=== PATIENT | female | born 1975 | race Asian ===

== ENCOUNTER 2019-09-07 22:06 | Emergency (ER) | payer MEDICAID ==
[~2019-09-07] VITALS: Ht 152.4 cm; Wt 56.8 kg
--- NOTE | 2019-09-07 22:18 | NUR ---
SHE CALLED HER SON AND HAD ME SPEAK TO HIM AND HE WAS ABLE TO TELL ME ABOUT THE THINGS THAT I SPOKE IN THE TRIAGE NOTE. THERE IS A LANGUAGE BARRIER. PT IS RESTING NOW.
[2019-09-07 23:16] LABS: HEMOGLOBIN 14.3 g/dl (12.0-16.0)
[2019-09-07 23:17] LABS: BASOPHILS # (AUTO) 0.1 X10'3 (0-0.2); BASOPHILS % (AUTO) 0.6 % (0-1); EOSINOPHILS # (AUTO) 0.1 X10'3 (0-0.9); HEMATOCRIT 41.5 % (35.0-45.0); LYMPHOCYTES # (AUTO) 1.9 X10'3 (1.1-4.8); LYMPHOCYTES % (AUTO) 20.5 % (21-51); MEAN CORPUSCULAR HEMOGLOBIN 30.7 PG (27.0-31.0); MEAN CORPUSCULAR HGB CONC 34.4 g/dL (33.0-36.5); MEAN CORPUSCULAR VOLUME 89.4 FL (78-98); MEAN PLATELET VOLUME 10.5 FL (7.4-10.4); MONOCYTES # (AUTO) 0.7 X10'3 (0-0.9); MONOCYTES % (AUTO) 7.1 % (2-12); NEUTROPHILS # (AUTO) 6.7 X10'3 (1.8-7.7); NEUTROPHILS % (AUTO) 70.8 % (42-75); PLATELET COUNT 154 X10'3 (140-440); RED BLOOD COUNT 4.64 X10'6 (4.20-5.60); RED CELL DISTRIBUTION WIDTH 13.2 % (11.5-14.5); WHITE BLOOD COUNT 9.4 X10'3 (4.5-11.0)
[2019-09-07 23:24] LABS: ALANINE AMINOTRANSFERASE 37 U/L (12-78); ALBUMIN 3.1 G/DL (3.4-5.0); ALBUMIN/GLOBULIN RATIO 0.8 (1.1-1.5); ALKALINE PHOSPHATASE 69 IU/L (46-116); ANION GAP 9 (8-16); ASPARTATE AMINO TRANSFERASE 22 U/L (10-37); BILIRUBIN,TOTAL 0.3 MG/DL (0.1-1.0); BLOOD UREA NITROGEN 14 MG/DL (7-18); BUN/CREATININE RATIO 20.9 (6.6-38.0); CALCIUM 7.9 MG/DL (8.5-10.1); CHLORIDE 106 MMOL/L (99-107); CREATININE 0.67 MG/DL (0.40-0.90); GLUCOSE 108 MG/DL (70-104); SODIUM 140 MMOL/L (135-145); TOTAL CARBON DIOXIDE 24.6 MMOL/L (24-32); TOTAL PROTEIN 6.8 G/DL (6.4-8.2); eGFR > 90 ML/MIN
[2019-09-07] MEDS ORDERED: normal saline 1000ML IV soln IVB ONE (23:25)
[2019-09-07 23:34] LABS: TROPONIN I < 0.04 NG/ML (0.0-0.05)
[2019-09-07 23:38] LABS: ETHANOL < 0.010 GM/DL (0.0-0.010)
[2019-09-08] MEDS ORDERED: normal saline 1000ML IV soln IVB ONE (01:05)
--- NOTE | 2019-09-08 01:16 | NUR ---
I AWOKE THE PATIENT AND AM HAVING HER VOID
[2019-09-08 01:31] LABS: URINE HCG NEGATIVE (NEG)
--- NOTE | 2019-09-08 01:38 | NUR ---
PT UNDRESSED IN FRONT ON ME. NO SKIN ISSUES. NO CONTRABAND. PT IS MEDICALLY CLEARED. SHE IS BEING TRANSFERRED TO [facility] TO [place].
[2019-09-08 01:44] LABS: URINE AMPHETAMINE SCREEN NEGATIVE (Neg); URINE BARBITUATE SCREEN NEGATIVE (Neg); URINE BENZODIAZEPINES SCREEN POSITIVE (Neg); URINE CANNABINOID SCREEN NEGATIVE (Neg); URINE COCAINE SCREEN NEGATIVE (Neg); URINE METHADONE SCREEN NEGATIVE (Neg); URINE OPIATE SCREEN NEGATIVE (Neg); URINE PHENCYCLIDINE SCREEN NEGATIVE (Neg)
--- NOTE | 2019-09-08 01:44 | NUR ---
Pt resting comfortably, respirations normal, no s/s of distress.
[2019-09-08 01:47] LABS: CLARITY,URINE CLEAR (Clear); COLOR,URINE YELLOW (Yellow); GLUCOSE, URINE NEGATIVE (Neg); KETONES,URINE TRACE mg/dl (Neg); LEUKOCYTE ESTERASE ,URINE NEGATIVE (Neg); NITRITES, URINE NEGATIVE (Neg); OCCULT BLOOD,URINE NEGATIVE (Neg); PROTEIN,URINE NEGATIVE (Neg); UROBILINOGEN,URINE 0.2 E.U/dL (0.2-1.0)
[2019-09-08 01:49] LABS: UA COLLECTION TYPE CLN CATCH MIDSTREAM
--- NOTE | 2019-09-08 02:30 | NUR ---
Pt resting comfortably, respirations normal, no s/s of distress.
--- NOTE | 2019-09-08 03:52 | NUR ---
Pt resting comfortably, respirations normal, no s/s of distress.
[2019-09-08 05:30] VITALS: BP 118/75
--- NOTE | 2019-09-08 06:34 | NUR ---
Pt up to the bathroom
--- NOTE | 2019-09-08 07:00 | NUR ---
pt got up to use the restroom.
[2019-09-08] MEDS ORDERED: QUEtiapine 25mg tablet PO SCH (08:00)
--- NOTE | 2019-09-08 08:34 | NUR ---
Pt ate her breakfast and is now resting on her back in no apparent distress
--- NOTE | 2019-09-08 09:52 | NUR ---
Pt resting comfortably on left side respirations normal, no s/s of distress.
--- NOTE | 2019-09-08 11:32 | NUR ---
Pt is sleeping, does not appear to be in distress.
--- NOTE | 2019-09-08 11:55 | NUR ---
Pt up to the bathroom
--- NOTE | 2019-09-08 12:34 | NUR ---
pt is up to the restroom again.
--- NOTE | 2019-09-08 13:31 | NUR ---
registration is at the bedside doing followup.
--- NOTE | 2019-09-08 14:28 | NUR ---
Misha from [facility] here to speak with pt
--- NOTE | 2019-09-08 15:21 | NUR ---
Pt on the phone with Misha and Mandarin repeater operator.
[2019-09-08] MEDS ORDERED: HYDR-3686 PO (16:41)
--- NOTE | 2019-09-08 16:50 | NUR ---
[facility] for [facility] health [facility]. Pt is discharged with a prescription for atarax for ten days and given the number for [facility].
--- NOTE | 2019-09-08 17:01 | NUR ---
Pt works at [employer]
== END 2019-09-08 17:12 | disposition home or self-care (01) ==
LOC: ER 22:07
DX: R45.851 Suicidal ideations (principal); F32.9 Major depressive disorder, single episode, unspecified; R07.89 Other chest pain; I10 Essential (primary) hypertension; F17.200 Nicotine dependence, unspecified, uncomplicated
CPT/HCPCS: 36415; 80053; 80305; 80320; 81003; 81025; 84443; 84484; 85025; 93005; 99284; J7030